=== PATIENT | female | born 1950 | race Caucasian/White ===

== ENCOUNTER 2020-01-14 08:45 | Outpatient (CLI) | payer MEDICARE, SELFPAY ==
[2020-01-14 09:46] LABS: Hematocrit 42.6 % (37.0-47.0); Hemoglobin 13.5 g/dL (12.0-15.0); Mean Corpuscular HGB Conc 31.7 g/dl (32-36); Mean Corpuscular Hemoglobin 25.6 pg (26-34); Mean Corpuscular Volume 80.8 fl (80-100); Platelet Count Result 302 k/mm3 (150-375); Red Blood Count 5.27 M/mm3 (4.2-5.4); Red Cell Distribution Width 19.2 % (11.5-14.5); White Blood Count 11.2 K/mm3 (4.5-10.0)
[2020-01-14 10:11] LABS: LDL Cholesterol Direct 120 mg/dL
[2020-01-14 10:15] LABS: Alanine Aminotransferase 27 U/L (4-35); Albumin Level 4.2 g/dL (3.5-5.1); Alkaline Phosphatase 78 U/L (38-126); Aspartate Amino Transferase 28 U/L (14-36); Bilirubin,Total 0.4 mg/dL (0.2-1.3); Blood Urea Nitrogen 11 mg/dL (7-17); Calcium 9.2 mg/dL (8.4-10.2); Carbon Dioxide 26 mmol/L (22-30); Chloride 103 mmol/L (98-107); Cholesterol 204 mg/dL (0-200); Estimated Glomerular Filt Rate > 60; Glucose 132 mg/dL (65-105); HDL Direct 52 mg/dL; Potassium 4.2 mmol/L (3.4-5.0); Sodium 141 mmol/L (137-145); Triglycerides 149 mg/dL (<150)
== END 2020-01-14 08:46 | disposition home or self-care (01) ==
PROVIDERS: PCP Internal Medicine; Visit Provider Internal Medicine
DX: E11.9 Type 2 diabetes mellitus without complications (principal); I10 Essential (primary) hypertension; K75.81 Nonalcoholic steatohepatitis (NASH); E78.5 Hyperlipidemia, unspecified; D50.8 Other iron deficiency anemias
CPT/HCPCS: 36415; 80053; 80061; 83036; 85027

== ENCOUNTER 2020-02-14 08:26 | Outpatient (CLI) | payer MEDICARE, SELFPAY ==
[2020-02-14 08:37] LABS: Basophils Absolute Auto 0.1 K/mm3 (0.0-0.1); Basophils Percent Auto 0.6 % (0.2-1.2); Eosinophils Absolute Auto 0.4 K/mm3 (0-0.3); Eosinophils Percent Auto 4.4 % (0-4.4); Hematocrit 43.6 % (37.0-47.0); Hemoglobin 13.9 g/dL (12.0-15.0); Immature Granulocyte Absolute 0.04 K/mm3 (0.00-0.031); Immature Granulocyte Percent A 0.4 % (0-0.5); Lymphocytes Absolute Auto 2.26 K/mm3 (0.9-3.2); Lymphocytes Percent Auto 22.5 % (18.3-44.2); Mean Corpuscular HGB Conc 31.9 g/dl (32-36); Mean Corpuscular Hemoglobin 27.1 pg (26-34); Mean Corpuscular Volume 85.2 fl (80-100); Mean Platelet Volume 10.3 fl (7.4-10.4); Monocytes Absolute Auto 0.6 K/mm3 (0.1-0.6); Monocytes Percent Auto 6.3 % (2.6-8.5); Neutrophils Absolute Auto 6.6 K/mm3 (1.3-6.7); Neutrophils Percent Auto 65.8 % (45.5-73.1); Platelet Count Result 308 k/mm3 (150-375); Red Blood Count 5.12 M/mm3 (4.2-5.4); Red Cell Distribution Width 18.5 % (11.5-14.5); White Blood Count 10.1 K/mm3 (4.5-10.0)
[2020-02-14 12:25] LABS: Alanine Aminotransferase 20 U/L (4-35); Albumin Level 4.1 g/dL (3.5-5.1); Alkaline Phosphatase 84 U/L (38-126); Aspartate Amino Transferase 21 U/L (14-36); Bilirubin,Total 0.3 mg/dL (0.2-1.3); Blood Urea Nitrogen 12 mg/dL (7-17); Calcium 9.4 mg/dL (8.4-10.2); Carbon Dioxide 23 mmol/L (22-30); Chloride 104 mmol/L (98-107); Estimated Glomerular Filt Rate > 60; Glucose 135 mg/dL (65-105); Potassium 4.4 mmol/L (3.4-5.0); Sodium 138 mmol/L (137-145)
[2020-02-14 12:48] LABS: Carcinoembryonic Antigen 0.7 ng/mL (0.0-3.0)
== END 2020-02-14 08:27 | disposition home or self-care (01) ==
LOC: ANHLAB 08:28
PROVIDERS: PCP Internal Medicine; Visit Provider Internal Medicine Hematology & Oncology
DX: C18.2 Malignant neoplasm of ascending colon (principal)
CPT/HCPCS: 36415; 80053; 82378; 85025

== ENCOUNTER 2020-03-13 09:04 | Outpatient (CLI) | payer MEDICARE, SELFPAY ==
--- NOTE | ~2020-03-13 | MM_ITS ---
EXAMINATION: MM screening elizabeth BI w mio HISTORY: Screening mammogram TECHNIQUE: Craniocaudal and mediolateral oblique 3-D tomosynthesis images were obtained and synthetic 2-D images were generated. CAD analysis was submitted and interpreted. COMPARISON: Comparison to multiple prior studies sequentially, with oldest reviewed study dated 03/2012. BREAST PARENCHYMAL COMPOSITION: There are scattered areas of fibroglandular density. FINDINGS: There is no evidence of suspicious mass, calcification, or architectural distortion to sugg est malignancy in either breast. There has been no suspicious interval change. IMPRESSION: 1. No mammographic evidence of malignancy. 2. Recommend routine screening mammography in one year. BI-RADS Category 1: Negative Reviewed, dictated and finalized at location A.
== END 2020-03-13 09:05 | disposition home or self-care (01) ==
PROVIDERS: PCP Internal Medicine; Visit Provider Nurse Practitioner
DX: Z12.31 Encounter for screening mammogram for malignant neoplasm of breast (principal)
CPT/HCPCS: 77063; 77067

== ENCOUNTER 2020-04-21 08:42 | Outpatient (CLI) | payer MEDICARE, SELFPAY ==
--- NOTE | ~2020-04-21 | CT_ITS ---
EXAMINATION: CT abdomen pelvis w con DATE: 04/21/2020 09:21 INDICATION: Malignant neoplasm of ascending colon. TECHNIQUE: Computed tomography (CT) of the abdomen and pelvis was performed with 100 mL Omnipaque 350 intravenous contrast. Automated exposure control and iterative reconstruction technique were employe d. The dose-length product was 557.21 mGy-cm. COMPARISON: PET/CT 10/04/2019, CT 09/20/2019 FINDINGS: The visualized portions of the lung bases demonstrates mild atelectasis. No pleural effusio n. The heart size is normal. No pericardial effusion. There is a small sliding hiatal hernia. The [place] er is normal. There are changes of cholecystectomy. The spleen, pancreas, adrenal glands, and kidneys are normal. There are changes of right hemicolectomy. There are areas of fat necrosis in the surgica l bed. There is diverticulosis of the colon without evidence of diverticulitis. There are no patholog ically enlarged lymph nodes. There is no free intraperitoneal fluid. There is severe lower lumbar spo ndylosis. IMPRESSION: 1. No evidence of metastatic disease. Reviewed, dictated and finalized at location A.
[2020-04-21 09:12] LABS: Estimated Glomerular Filt Rate > 60
== END 2020-04-21 08:43 | disposition home or self-care (01) ==
LOC: ANHIMG 08:45
PROVIDERS: PCP Internal Medicine; Visit Provider Internal Medicine Hematology & Oncology
DX: C18.2 Malignant neoplasm of ascending colon (principal)
CPT/HCPCS: 36415; 74177; Q9967

== ENCOUNTER 2020-07-18 08:32 | Outpatient (CLI) | payer MEDICARE, SELFPAY ==
[2020-07-18 08:54] LABS: Basophils Absolute Auto 0.1 K/mm3 (0.0-0.1); Basophils Percent Auto 0.9 % (0.2-1.2); Eosinophils Absolute Auto 0.6 K/mm3 (0-0.3); Eosinophils Percent Auto 5.1 % (0-4.4); Hematocrit 41.2 % (37.0-47.0); Immature Granulocyte Absolute 0.08 K/mm3 (0.00-0.031); Immature Granulocyte Percent A 0.7 % (0-0.5); Lymphocytes Absolute Auto 2.71 K/mm3 (0.9-3.2); Lymphocytes Percent Auto 23.6 % (18.3-44.2); Mean Corpuscular Hemoglobin 30.1 pg (26-34); Mean Corpuscular Volume 88.6 fl (80-100); Mean Platelet Volume 10.3 fl (7.4-10.4); Monocytes Absolute Auto 0.7 K/mm3 (0.1-0.6); Monocytes Percent Auto 5.8 % (2.6-8.5); Neutrophils Absolute Auto 7.3 K/mm3 (1.3-6.7); Neutrophils Percent Auto 63.9 % (45.5-73.1); Platelet Count Result 304 k/mm3 (150-375); Red Blood Count 4.65 M/mm3 (4.2-5.4); White Blood Count 11.5 K/mm3 (4.5-10.0)
[2020-07-18 09:04] LABS: Hemoglobin A1C 7.2 % (<5.7)
[2020-07-18 09:08] LABS: Alanine Aminotransferase 96 U/L (4-35); Albumin Level 4.2 g/dL (3.5-5.1); Alkaline Phosphatase 76 U/L (38-126); Anion Gap 10 mmol/L (8-16); Aspartate Amino Transferase 103 U/L (14-36); Bilirubin,Total 0.5 mg/dL (0.2-1.3); Blood Urea Nitrogen 10 mg/dL (7-17); Calcium 9.1 mg/dL (8.4-10.2); Carbon Dioxide 25 mmol/L (22-30); Chloride 103 mmol/L (98-107); Estimated Glomerular Filt Rate > 60; Glucose 177 mg/dL (65-105); Potassium 4.2 mmol/L (3.4-5.0); Sodium 138 mmol/L (137-145)
[2020-07-18 09:18] LABS: Iron 86 ug/dL (37-170)
[2020-07-18 09:31] LABS: Percent Iron Saturation 21 % (20-50)
[2020-07-18 11:50] LABS: Vitamin D 25 Hydroxy 32.7 ng/mL
== END 2020-07-18 08:33 | disposition home or self-care (01) ==
PROVIDERS: PCP Internal Medicine; Visit Provider Nurse Practitioner
DX: E55.9 Vitamin D deficiency, unspecified (principal); E11.9 Type 2 diabetes mellitus without complications; D50.0 Iron deficiency anemia secondary to blood loss (chronic)
CPT/HCPCS: 36415; 80053; 82306; 83036; 83540; 83550; 85025

== ENCOUNTER 2020-08-17 11:28 | Outpatient (CLI) | payer MEDICARE, SELFPAY ==
[2020-08-17 11:45] LABS: Basophils Absolute Auto 0.1 K/mm3 (0.0-0.1); Basophils Percent Auto 0.7 % (0.2-1.2); Eosinophils Absolute Auto 0.3 K/mm3 (0-0.3); Eosinophils Percent Auto 2.2 % (0-4.4); Hemoglobin 14.8 g/dL (12.0-15.0); Immature Granulocyte Absolute 0.07 K/mm3 (0.00-0.031); Immature Granulocyte Percent A 0.5 % (0-0.5); Lymphocytes Absolute Auto 3.16 K/mm3 (0.9-3.2); Lymphocytes Percent Auto 22.9 % (18.3-44.2); Mean Corpuscular HGB Conc 33.6 g/dl (32-36); Mean Corpuscular Hemoglobin 29.5 pg (26-34); Mean Corpuscular Volume 87.6 fl (80-100); Mean Platelet Volume 10.3 fl (7.4-10.4); Monocytes Absolute Auto 0.9 K/mm3 (0.1-0.6); Monocytes Percent Auto 6.4 % (2.6-8.5); Neutrophils Absolute Auto 9.3 K/mm3 (1.3-6.7); Neutrophils Percent Auto 67.3 % (45.5-73.1); Platelet Count Result 344 k/mm3 (150-375); Red Blood Count 5.02 M/mm3 (4.2-5.4); White Blood Count 13.8 K/mm3 (4.5-10.0)
[2020-08-17 13:42] LABS: Iron 70 ug/dL (37-170)
[2020-08-17 13:52] LABS: Percent Iron Saturation 16 % (20-50)
[2020-08-17 14:10] LABS: Alanine Aminotransferase 87 U/L (4-35); Albumin Level 4.6 g/dL (3.5-5.1); Alkaline Phosphatase 82 U/L (38-126); Anion Gap 15 mmol/L (8-16); Aspartate Amino Transferase 80 U/L (14-36); Bilirubin,Total 0.4 mg/dL (0.2-1.3); Blood Urea Nitrogen 14 mg/dL (7-17); Calcium 9.8 mg/dL (8.4-10.2); Carbon Dioxide 23 mmol/L (22-30); Chloride 101 mmol/L (98-107); Estimated Glomerular Filt Rate > 60; Glucose 177 mg/dL (65-105); Sodium 139 mmol/L (137-145)
== END 2020-08-17 11:29 | disposition home or self-care (01) ==
LOC: ANHLAB 11:31
PROVIDERS: PCP Internal Medicine; Visit Provider Internal Medicine Hematology & Oncology
DX: R79.89 Other specified abnormal findings of blood chemistry (principal); C18.2 Malignant neoplasm of ascending colon
CPT/HCPCS: 36415; 80053; 82378; 82728; 83540; 83550; 85025; 86038

== ENCOUNTER 2021-01-23 07:07 | Outpatient (CLI) | payer MEDICARE, SELFPAY ==
[2021-01-23 07:53] LABS: Alanine Aminotransferase 72 U/L (4-35); Albumin Level 3.9 g/dL (3.5-5.1); Alkaline Phosphatase 70 U/L (38-126); Anion Gap 10 mmol/L (8-16); Aspartate Amino Transferase 61 U/L (14-36); Bilirubin,Total 0.3 mg/dL (0.2-1.3); Blood Urea Nitrogen 12 mg/dL (7-17); Calcium 8.6 mg/dL (8.4-10.2); Carbon Dioxide 23 mmol/L (22-30); Chloride 106 mmol/L (98-107); Cholesterol 193 mg/dL (0-200); Estimated Glomerular Filt Rate > 60; Glucose 186 mg/dL (65-105); HDL Direct 47 mg/dL; Sodium 139 mmol/L (137-145); Triglycerides 175 mg/dL (<150)
[2021-01-23 08:04] LABS: LDL Cholesterol Direct 117 mg/dL
[2021-01-23 08:36] LABS: Vitamin D 25 Hydroxy 33.8 ng/mL
[2021-01-23 09:50] LABS: Hemoglobin A1C 6.9 % (<5.7)
== END 2021-01-23 07:08 | disposition home or self-care (01) ==
PROVIDERS: PCP Internal Medicine; Visit Provider Internal Medicine
DX: E78.5 Hyperlipidemia, unspecified (principal); I10 Essential (primary) hypertension; E11.9 Type 2 diabetes mellitus without complications; E55.9 Vitamin D deficiency, unspecified
CPT/HCPCS: 36415; 80053; 80061; 82306; 83036

== ENCOUNTER → 2021-02-03 02:13 | Outpatient (CLI) | payer MEDICARE, SELFPAY ==
[2021-02-03 20:22] LABS: SARS-CoV-2 RNA PCR Negative
== END ==
PROVIDERS: PCP Internal Medicine; Visit Provider Internal Medicine Gastroenterology
DX: Z01.812 Encounter for preprocedural laboratory examination (principal); Z20.822 Contact with and (suspected) exposure to COVID-19
CPT/HCPCS: C9803; U0003; U0005

== ENCOUNTER 2021-02-06 01:38 | Day surgery (SDC) | payer MEDICARE, SELFPAY ==
[2021-01-23 13:46] VITALS: BMI 31.1
[2021-02-06 10:57] VITALS: BP 161/86; PULSE 92; RESP 16; TEMP 36.3; O2SAT 98; BMI 31.1
[2021-02-06 11:01] LABS: Glucose Point of Care 166 (65-105)
[2021-02-06] MEDS: LACTATED RINGERS 1,000 ML 150 ML IV CONT (11:17)
--- NOTE | 2021-02-06 11:34 | WPDANESEPPF ---
Anes - Initial Pre Proc Eval Procedure: Operation Date: 02/06/21 12:00 Proposed Procedures p Colonoscopy - Rios Nolan MD Date/Time: 02/06/21 11:34 Surgeon: Rios Nolan MD Pre Op Diagnosis: DK, Hx of Colon CA Patient Data Age: 71 Gender: F Height: 5 ft 2 in Weight: 77.3 kg Last Vital Signs Temp 36.3 C L 02/06/21 10:57 Pulse 92 02/06/21 10:57 Resp 16 02/06/21 10:57 BP 161/86 H 02/06/21 10:57 Pulse Ox 98 02/06/21 10:57 Allergies Allergy/AdvReac Type Severity Reaction Status Date / Time No Known Allergies Allergy Verified 02/06/21 10:55 Home Medications Medication Instructions Recorded Confirmed Type [id number] 1 cap PO DAILY 10/05/19 01/30/21 History aspirin [Aspir-81] 81 mg PO DAILY 10/05/19 01/30/21 History omega 3-jlw-hrr-fish oil [Fish Oil] 1 cap PO TID 10/05/19 01/30/21 History vitamin B complex-folic acid [B 1 tablet PO BID 10/05/19 01/30/21 History Complex 1 (with folic acid)] glipizide 5 mg tablet See Rx Instructions .ROUTE 10/24/20 01/30/21 Rx .COMPLEX #180 tablet sitagliptin 50 mg-metformin 500 mg 1 tablet PO BID #180 tablet 10/24/20 01/30/21 Rx tablet magnesium oxide 400 mg (241.3 mg See Rx Instructions .ROUTE 12/07/20 01/30/21 Rx magnesium) tablet .COMPLEX #180 tablet losartan 100 See Rx Instructions .ROUTE 12/18/20 01/30/21 Rx mg-hydrochlorothiazide 25 mg tablet .COMPLEX #90 tablet sodium,potassium,mag sulfates 17.5 See Rx Instructions PO .COMPLEX 01/10/21 01/30/21 Rx gram-3.13 gram-1.6 gram oral soln #354 ml Laboratory Tests 02/06/21 10:58 POC Capillary Glucose 166 mg/dl H mg/dl (65-105) Patient hx anesthesia problems: none Family hx anesthesia problems: none PMFSH Past Medical History Medical History Chronic anemia Diabetes Hiatal hernia identified by CT, small sliding distal esophageal High cholesterol History of blood transfusion Hypertension Malignant neoplasm of ascending colon Multiple renal calculi history of passing without surgical intervention Obesity (BMI 30-39.9) Postmenopausal Screening for breast cancer RELL (stress urinary incontinence, female) Vitamin D deficiency, unspecified Surgical History Surgical History History of cholecystectomy 2011 History of hysterectomy Status post right hemicolectomy Family History Family History Father Acute myocardial infarction, Onset Age: 63 Patient's father is Mother Family history of malignant neoplasm of breast in first degree relative, Onset Age: 63 Patient's mother is Sibling Family history of malignant neoplasm of breast in first degree relative Grandparent Diabetes mellitus Other Cerebrovascular accident Family history of cardiovascular disease Social History Social History Smoking status: Never smoker Alcohol intake: never Substance use type: does not use Gender identity (if verbalized by the patient): Female Spiritual care concerns: No Anes - Eval Final PreProcedure Day of Procedure 02/06/21 11:34 Patient weight: obese Heart: regular rate and rhythm Lungs: clear to auscultation Airway: Mallampati scale class II Neurological: alert and oriented Last oral intake: >/= 8 hours ASA classification: III Emergent: no Anesthetic plan: proceed Anesthesia type and monitoring: general GIVS and standard monitoring Informed Consent: The patient's anesthetic plan and its attendant risks and benefits were discussed with the patient/family/POA. Questions were solicited and answers provided to the satisfaction of the patient/family/POA.
--- NOTE | 2021-02-06 12:00 | PM.HPGS ---
History of Present Illness History of Present Illness Consent: Risks, benefits, and alternatives have been discussed and questions answered. Patient agrees to proceed with procedure. Chief complaint: DK, Hx of Colon CA Narrative: Diamond Hutchinson is a 71 year old female with colon cancer in ascending s/p rt hemicolectomy 2019 Review of Systems Constitutional: Constitutional: Denies headache(s) and Denies weakness Eyes: Eyes: Denies blurry vision ENT: Reports Normal hearing present, Denies headache(s) and Denies neck pain Cardiovascular: Cardiovascular: Denies chest pain and Denies dyspnea Respiratory: Respiratory: Denies dyspnea Gastrointestinal: Gastrointestinal: Reports no additional gastrointestinal complaints Genitourinary: Genitourinary: Denies dysuria Musculoskeletal: Musculoskeletal: Denies neck pain Integumentary/Breasts: Skin/Breast: Denies dry skin Neurologic: Reports Normal hearing present, Denies headache(s) and Denies weakness Psychiatric: Psychiatric: Denies anxiety Endocrine: Endocrine: Denies change in body appearance Hematologic/Lymphatic: Hematologic/Lymphatic: Denies easy bleeding Allergic/Immunologic: Allergic/Immunologic: Denies urticaria PMFSH Past Medical History Medical History Chronic anemia Diabetes Hiatal hernia identified by CT, small sliding distal esophageal High cholesterol History of blood transfusion Hypertension Malignant neoplasm of ascending colon Multiple renal calculi history of passing without surgical intervention Obesity (BMI 30-39.9) Postmenopausal Screening for breast cancer RELL (stress urinary incontinence, female) Vitamin D deficiency, unspecified Surgical History Surgical History History of cholecystectomy 2010 History of hysterectomy Status post right hemicolectomy Family History Family History Father Acute myocardial infarction, Onset Age: 63 Patient's father is Mother Family history of malignant neoplasm of breast in first degree relative, Onset Age: 63 Patient's mother is Sibling Family history of malignant neoplasm of breast in first degree relative Grandparent Diabetes mellitus Other Cerebrovascular accident Family history of cardiovascular disease Social History Social History Smoking status: Never smoker Alcohol intake: never Substance use type: does not use Gender identity (if verbalized by the patient): Female Spiritual care concerns: No Meds Home Medications and Allergies Home Medications Medication Instructions Recorded Confirmed Type [id number] 1 cap PO DAILY 10/05/19 01/30/21 History aspirin [Aspir-81] 81 mg PO DAILY 10/05/19 01/30/21 History omega 8-vsl-vqd-fish oil [Fish Oil] 1 cap PO TID 10/05/19 01/30/21 History vitamin B complex-folic acid [B 1 tablet PO BID 10/05/19 01/30/21 History Complex 1 (with folic acid)] glipizide 5 mg tablet See Rx Instructions .ROUTE 10/24/20 01/30/21 Rx .COMPLEX #180 tablet sitagliptin 50 mg-metformin 500 mg 1 tablet PO BID #180 tablet 10/24/20 01/30/21 Rx tablet magnesium oxide 400 mg (241.3 mg See Rx Instructions .ROUTE 12/07/20 01/30/21 Rx magnesium) tablet .COMPLEX #180 tablet losartan 100 See Rx Instructions .ROUTE 12/18/20 01/30/21 Rx mg-hydrochlorothiazide 25 mg tablet .COMPLEX #90 tablet sodium,potassium,mag sulfates 17.5 See Rx Instructions PO .COMPLEX 01/10/21 01/30/21 Rx gram-3.13 gram-1.6 gram oral soln #354 ml Allergies Allergy/AdvReac Type Severity Reaction Status Date / Time No Known Allergies Allergy Verified 02/06/21 10:55 Vital Signs Vital Signs - 24 hr 02/06/21 10:57 Temperature 97.4 F L Pulse Rate 92 Respiratory Rate 16 Blood Pressur
[2021-02-06 12:18] VITALS: BP 114/63; PULSE 83; RESP 17; O2SAT 96
[2021-02-06 12:28] VITALS: BP 115/73; PULSE 77; RESP 18; O2SAT 97
[2021-02-06 12:38] VITALS: BP 124/72; PULSE 67; RESP 23; O2SAT 97
== END 2021-02-06 12:46 | disposition home or self-care (01) ==
PROVIDERS: PCP Internal Medicine; Visit Provider Internal Medicine Gastroenterology
PROC: 0DJD8ZZ Inspection of Lower Intestinal Tract, Via Natural or Artificial Opening Endoscopic (ICD-10-PCS; CPT 45378; principal; 2021-02-06 12:00)
DX: Z12.11 Encounter for screening for malignant neoplasm of colon (principal); K57.30 Diverticulosis of large intestine without perforation or abscess without bleeding; Z85.038 Personal history of other malignant neoplasm of large intestine; Z79.82 Long term (current) use of aspirin; K44.9 Diaphragmatic hernia without obstruction or gangrene; E78.00 Pure hypercholesterolemia, unspecified; I10 Essential (primary) hypertension; E55.9 Vitamin D deficiency, unspecified; Z90.49 Acquired absence of other specified parts of digestive tract; Z98.0 Intestinal bypass and anastomosis status; K64.8 Other hemorrhoids; D50.9 Iron deficiency anemia, unspecified; E66.9 Obesity, unspecified; Z68.31 Body mass index [BMI] 31.0-31.9, adult
CPT/HCPCS: G0105; 82948; J2704; J7120

== ENCOUNTER 2021-02-21 17:20 | Outpatient (CLI) | payer MEDICARE, SELFPAY | END 2021-02-21 17:21 | disposition home or self-care (01) | LOC: ANHCOVIDVC 17:20 | PROVIDERS: PCP Internal Medicine | DX: Z23 Encounter for immunization (principal) | CPT/HCPCS: 0001A; 91300 ==

== ENCOUNTER 2021-03-14 17:13 | Outpatient (CLI) | payer MEDICARE, SELFPAY | END 2021-03-14 17:14 | disposition home or self-care (01) | LOC: ANHCOVIDVC 17:13 | PROVIDERS: PCP Internal Medicine | DX: Z23 Encounter for immunization (principal) | CPT/HCPCS: 0002A; 91300 ==

== ENCOUNTER 2021-04-25 08:11 | Outpatient (CLI) | payer MEDICARE, SELFPAY ==
--- NOTE | ~2021-04-25 | MM_ITS ---
EXAMINATION: MM screening elizabeth BI w mio HISTORY: Screening mammogram, family history of breast cancer in her sister. TECHNIQUE: Craniocaudal and mediolateral oblique 3-D tomosynthesis images were obtained and synthetic 2-D images were generated. CAD analysis was submitted and interpreted. COMPARISON: 03/13/2020, 03/12/2019, 01/27/2019 BREAST PARENCHYMAL COMPOSITION: There are scattered areas of fibroglandular density. FINDINGS: Scattered benign-appearing calcifications are present. There is no evidence of suspicious m ass, calcification, or architectural distortion to suggest malignancy in either breast. There has bee n no suspicious interval change. IMPRESSION: 1. No mammographic evidence of malignancy. 2. Recommend routine screening mammography in one year. BI-RADS Category 2: Benign finding(s). Reviewed, dictated and finalized at location A.
== END 2021-04-25 08:12 | disposition home or self-care (01) ==
LOC: ANHIMG 08:15
PROVIDERS: PCP Internal Medicine; Visit Provider Internal Medicine
DX: Z12.31 Encounter for screening mammogram for malignant neoplasm of breast (principal)
CPT/HCPCS: 77063; 77067

== ENCOUNTER 2021-08-02 06:58 | Outpatient (CLI) | payer MEDICARE, SELFPAY ==
[2021-08-02 08:43] LABS: Hemoglobin A1C 7.5 % (<5.7)
== END 2021-08-02 06:59 | disposition home or self-care (01) ==
LOC: ANHLAB 07:02
PROVIDERS: PCP Internal Medicine; Visit Provider Nurse Practitioner
DX: E11.9 Type 2 diabetes mellitus without complications (principal); E78.5 Hyperlipidemia, unspecified
CPT/HCPCS: 36415; 80053; 80061; 83036

== ENCOUNTER 2022-02-08 07:43 | Outpatient (CLI) | payer MEDICARE, SELFPAY ==
[2022-02-08 08:20] LABS: Alanine Aminotransferase 68 U/L (4-35); Albumin Level 4.4 g/dL (3.5-5.1); Alkaline Phosphatase 75 U/L (38-126); Anion Gap 11 mmol/L (8-16); Aspartate Amino Transferase 74 U/L (14-36); Bilirubin,Total 0.6 mg/dL (0.2-1.3); Blood Urea Nitrogen 10 mg/dL (7-17); Calcium 9.2 mg/dL (8.4-10.2); Carbon Dioxide 25 mmol/L (22-30); Chloride 99 mmol/L (98-107); Cholesterol 226 mg/dL (0-200); Estimated Glomerular Filt Rate > 60; Glucose 181 mg/dL (65-110); HDL Direct 46 mg/dL; Potassium 4.2 mmol/L (3.4-5.0); Sodium 135 mmol/L (137-145); Triglycerides 192 mg/dL (<150)
[2022-02-08 08:31] LABS: LDL Cholesterol Direct 128 mg/dL
[2022-02-08 08:44] LABS: Hemoglobin A1C 6.9 % (<5.7)
[2022-02-08 09:17] LABS: Creatinine Urine 146.3 mg/dL
[2022-02-08 09:21] LABS: MALB Creatinine Ratio 52.6 mg/g (0-30); Microalbumin Urine Random 76.9 mg/L (0-16.7)
[2022-02-08 09:29] LABS: Vitamin D 25 Hydroxy 43.5 ng/mL
== END 2022-02-08 07:44 | disposition home or self-care (01) ==
LOC: ANHLAB 07:45
PROVIDERS: PCP Internal Medicine; Visit Provider Internal Medicine
DX: E78.5 Hyperlipidemia, unspecified (principal); E11.9 Type 2 diabetes mellitus without complications; I10 Essential (primary) hypertension; E55.9 Vitamin D deficiency, unspecified
CPT/HCPCS: 36415; 80053; 80061; 82043; 82306; 83036

== ENCOUNTER 2022-06-13 07:20 | Outpatient (CLI) | payer MEDICARE, SELFPAY ==
--- NOTE | ~2022-06-13 | MM_ITS ---
EXAMINATION: MM screening elizabeth BI w mio HISTORY: Screening TECHNIQUE: Craniocaudal and mediolateral oblique 3-D tomosynthesis images were obtained and synthetic 2-D images were generated. CAD analysis was submitted and interpreted. COMPARISON: Comparison to multiple prior studies sequentially, with oldest reviewed study dated 09/11. BREAST PARENCHYMAL COMPOSITION: There are scattered areas of fibroglandular density. FINDINGS: There are developing asymmetries in the upper central aspect of both breasts. There are no suspicious calcifications or architectural distortion. IMPRESSION: 1. Developing bilateral breast asymmetries. 2. Additional mammographic views and possible breast ultrasound are recommended. BI-RADS Category 0: Incomplete: Needs additional imaging evaluation. Reviewed, dictated and finalized at location A. IMPRESSION: 1. Developing bilateral breast asymmetries. 2. Additional mammographic views and possible breast ultrasound are recommended . BI-RADS Category 0: Incomplete: Needs additional imaging evaluation.
== END 2022-06-13 07:21 | disposition home or self-care (01) ==
PROVIDERS: PCP Internal Medicine; Visit Provider Internal Medicine
DX: Z12.31 Encounter for screening mammogram for malignant neoplasm of breast (principal); R92.8 Other abnormal and inconclusive findings on diagnostic imaging of breast
CPT/HCPCS: 77063; 77067

== ENCOUNTER 2022-07-03 11:24 | Outpatient (CLI) | payer MEDICARE, SELFPAY ==
--- NOTE | ~2022-07-03 | MMUS_ITS ---
EXAMINATION: MM diagnostic elizabeth BI w mio, US breast BI complete HISTORY: Follow-up breast asymmetries TECHNIQUE: Additional 3-D tomosynthesis images of the breasts were performed and synthetic 2-D images were generated. CAD analysis was submitted and interpreted. High resolution bilateral complete breas t ultrasound was performed. COMPARISON: Comparison to multiple prior studies sequentially, with oldest reviewed study dated 01/30. BREAST PARENCHYMAL COMPOSITION: Breast composed of scattered areas of fibroglandular density FINDINGS: MAMMOGRAPHIC FINDINGS: Bilateral nodular asymmetries are less apparent with spot compression and mediolateral views, most li tony dense overlapping fibroglandular tissue. There are no suspicious calcifications or architectural distortion. ULTRASOUND: Complete bilateral US of all 4 quadrants of the breasts and retroareolar region was reviewed. Normal heterogeneous echotexture without focal solid or cystic mass. IMPRESSION: 1. No evidence for malignancy in either breast. 2. Routine yearly screening mammogram and regular clinical breast examination are recommended. BI-RADS Category 1: Negative Reviewed, dictated and finalized at location A. IMPRESSION: 1. No evidence for malignancy in either breast. 2. Routine yearly screening mammogram and regular clinical breast examination a re recommended. BI-RADS Category 1: Negative
== END 2022-07-03 11:25 | disposition home or self-care (01) ==
PROVIDERS: PCP Internal Medicine; Visit Provider Internal Medicine
DX: R92.8 Other abnormal and inconclusive findings on diagnostic imaging of breast (principal)
CPT/HCPCS: 76641; 77062; 77066; G0279

== ENCOUNTER 2022-09-17 06:35 | Outpatient (CLI) | payer MEDICARE, SELFPAY ==
[2022-09-17 07:24] LABS: Alanine Aminotransferase 83 U/L (6-35); Albumin Level 4.3 g/dL (3.5-5.1); Alkaline Phosphatase 75 U/L (38-126); Anion Gap 16 mmol/L (8-16); Aspartate Amino Transferase 76 U/L (14-36); Bilirubin,Total 0.5 mg/dL (0.2-1.3); Blood Urea Nitrogen 14 mg/dL (7-17); Carbon Dioxide 25 mmol/L (22-30); Chloride 99 mmol/L (98-107); Cholesterol 219 mg/dL (0-200); Estimated Glomerular Filt Rate > 60; Glucose 222 mg/dL (65-110); HDL Direct 36 mg/dL; Potassium 3.8 mmol/L (3.4-5.0); Sodium 140 mmol/L (137-145); Triglycerides 225 mg/dL (<150)
[2022-09-17 07:25] LABS: Hemoglobin A1C 9.6 % (<5.7)
[2022-09-17 07:34] LABS: LDL Cholesterol Direct 129 mg/dL
[2022-09-17 08:06] LABS: Vitamin D 25 Hydroxy 37.6 ng/mL
== END 2022-09-17 06:36 | disposition home or self-care (01) ==
LOC: ANHLAB 06:37
PROVIDERS: PCP Internal Medicine; Visit Provider Nurse Practitioner
DX: E55.9 Vitamin D deficiency, unspecified (principal); E11.9 Type 2 diabetes mellitus without complications; E78.5 Hyperlipidemia, unspecified
CPT/HCPCS: 36415; 80053; 80061; 82306; 83036

== ENCOUNTER 2023-03-27 08:23 | Outpatient (CLI) | payer MEDICARE, SELFPAY ==
[2023-03-27 09:12] LABS: Hemoglobin A1C 7.9 % (<5.7)
[2023-03-27 09:13] LABS: Alanine Aminotransferase 74 U/L (6-35); Albumin Level 4.4 g/dL (3.5-5.1); Alkaline Phosphatase 68 U/L (38-126); Anion Gap 9 mmol/L (8-16); Aspartate Amino Transferase 81 U/L (14-36); Bilirubin,Total 0.7 mg/dL (0.2-1.3); Blood Urea Nitrogen 11 mg/dL (7-17); Calcium 9.3 mg/dL (8.4-10.2); Carbon Dioxide 25 mmol/L (22-30); Chloride 103 mmol/L (98-107); Cholesterol 213 mg/dL (0-200); Estimated Glomerular Filt Rate > 60; Glucose 182 mg/dL (65-110); HDL Direct 46 mg/dL; Sodium 137 mmol/L (137-145); Triglycerides 230 mg/dL (<150)
[2023-03-27 09:23] LABS: LDL Cholesterol Direct 139 mg/dL
[2023-03-27 09:53] LABS: Creatinine Urine 114.1 mg/dL
[2023-03-27 09:55] LABS: Microalbumin Urine Random 69.6 mg/L (0-16.7)
[2023-03-27 10:01] LABS: Vitamin D 25 Hydroxy 37.3 ng/mL
== END 2023-03-27 08:24 | disposition home or self-care (01) ==
PROVIDERS: Internal Medicine; PCP Family Medicine; Visit Provider Family Medicine
DX: K75.81 Nonalcoholic steatohepatitis (NASH) (principal); E78.5 Hyperlipidemia, unspecified; E11.9 Type 2 diabetes mellitus without complications; I10 Essential (primary) hypertension; E55.9 Vitamin D deficiency, unspecified
CPT/HCPCS: 36415; 80053; 80061; 82043; 82306; 83036

== ENCOUNTER 2023-07-30 08:21 | Outpatient (CLI) | payer MEDICARE, SELFPAY ==
--- NOTE | ~2023-07-30 | MM_ITS ---
EXAMINATION: MM screening elizabeth BI w mio HISTORY: Screening TECHNIQUE: Craniocaudal and mediolateral oblique 3-D tomosynthesis images were obtained and synthetic 2-D images were generated. CAD analysis was submitted and interpreted. COMPARISON: Comparison to multiple prior studies sequentially, with oldest reviewed study dated 01/2019. BREAST PARENCHYMAL COMPOSITION: There are scattered areas of fibroglandular density. FINDINGS: The left breast is stable without evidence for malignancy. There is a developing cluster of indeterminate calcifications in the lower outer quadrant of the right breast, middle third. There ar e developing scattered asymmetries of the right breast. IMPRESSION: 1. Developing scattered asymmetries and clustered indeterminate calcifications of the right breast. 2. Additional mammographic views and possible breast ultrasound are recommended. BI-RADS Category 0: Incomplete: Needs additional imaging evaluation. Reviewed, dictated and finalized at location A. IMPRESSION: 1. Developing scattered asymmetries and clustered indeterminate calcifications of the right breast. 2. Additional mammographic views and possible breast ultrasound are recommended . BI-RADS Category 0: Incomplete: Needs additional imaging evaluation.
== END 2023-07-30 08:22 | disposition home or self-care (01) ==
LOC: ANHIMG 08:23
PROVIDERS: PCP Family Medicine; Visit Provider Family Medicine
DX: Z12.31 Encounter for screening mammogram for malignant neoplasm of breast (principal); R92.8 Other abnormal and inconclusive findings on diagnostic imaging of breast
CPT/HCPCS: 77063; 77067

== ENCOUNTER 2023-08-25 11:34 | Outpatient (CLI) | payer MEDICARE, SELFPAY ==
--- NOTE | ~2023-08-25 | MMUS_ITS ---
EXAMINATION: MM diagnostic elizabeth RT w mio, US breast RT complete HISTORY: Follow-up right breast asymmetries and calcifications TECHNIQUE: Additional 3-D tomosynthesis images of the right breast were performed and synthetic 2-D i mages were generated. CAD analysis was submitted and interpreted. High resolution complete right [address]urelia st ultrasound was performed. COMPARISON: Comparison to multiple prior studies sequentially, with oldest reviewed study dated 01/2019. BREAST PARENCHYMAL COMPOSITION: Breast composed of scattered areas of fibroglandular density FINDINGS: MAMMOGRAPHIC FINDINGS: Right breast asymmetries are less dense with spot compression and mediolateral views. No discrete mas s. There is a cluster of developing indeterminate calcifications in the lower outer quadrant of the r ight breast posteriorly. ULTRASOUND: Complete US of all 4 quadrants of the right breast and retroareolar region was reviewed. Normal heter ogeneous echotexture without focal solid or cystic mass. IMPRESSION: 1. Developing cluster of indeterminate right breast calcifications, lower outer quadrant posteriorly. 2. Stereotactic right breast biopsy recommended. BI-RADS category 4, suspicious findings. Reviewed, dictated and finalized at location A. IMPRESSION: 1. Developing cluster of indeterminate right breast calcifications, lower outer quadrant posteriorly. 2. Stereotactic right breast biopsy recommended. BI-RADS category 4, suspicious findings.
== END 2023-08-25 11:35 | disposition home or self-care (01) ==
LOC: ANHIMG 11:34
PROVIDERS: PCP Family Medicine; Visit Provider Family Medicine
DX: N64.89 Other specified disorders of breast (principal); R92.8 Other abnormal and inconclusive findings on diagnostic imaging of breast
CPT/HCPCS: 76641; 77061; 77065; G0279

== ENCOUNTER 2023-09-04 13:05 | Outpatient (CLI) | payer MEDICARE, SELFPAY ==
--- NOTE | ~2023-09-04 | MM_ITS ---
EXAMINATION: MM stereotactic bx RT, MM post biopsy diagnostic RT, MM stereotactic specimen RT, Specim en Radiograph, Tissue Marker Clip Placement, Unilateral Mammogram DATE: 09/04/2023 14:39 (accession [id number]), 09/04/2023 14:40 (accession [id number]), 09/04 14:39 (accession [id number]) INDICATION: Abnormal 08/25/2023 mammogram: Cluster of indeterminate right breast microcalcifications, lower outer quadrant posteriorly. TECHNIQUE AND FINDINGS: The risks and potential benefits of the procedure were discussed with the patient and written informe d consent was obtained. Timeout procedure was performed. The patient was placed in the prone position on the dedicated stereotactic table with the right breast in lateral medial compression, and the are a of interest was localized and targeted utilizing digital imaging with stereotaxis. After sterile preparation of the skin, 1% lidocaine was utilized for local anesthesia at the skin pun cture site and 1% lidocaine with epinephrine was utilized for deeper local anesthesia/is about the bi opsy site. A 9G [place] vacuum assisted biopsy needle was advanced to the level of the calcification o f interest from a lateral approach utilizing stereotactic guidance and a total of 12 tissue core biop sies were obtained. A specimen radiograph demonstrates that numerous calcifications of interest are included within the t issue cores. A tissue marker clip was then placed at the biopsy site. A digital mammographic exposu re confirmed the successful deployment of the biopsy marker. The needle was removed and hemostasis w as achieved. A sterile bandage was applied. The patient tolerated the procedure well and there is n o evidence of significant immediate complication. The patient was given verbal as well as written po stprocedural instructions prior to discharge from the department. Tissue cores were submitted to [facility] for histologic analysis. A 2-view right unilateral digital mammogram was obtained post procedure, demonstrating the tissue mar ker clip approximately 8.5 mm medial, 3 mm anterior and 7 mm inferior to some residual microcalcifica tions of interest.. The majority of the microcalcifications were successfully removed. IMPRESSION: Successful stereotactic biopsy of posterior lower central right breast microcalcifications followed by tissue marker clip placement. Please refer to pathology report for histologic analysis. Reviewed, dictated and finalized at Location A. Reviewed, dictated and finalized at location A. IMPRESSION: Successful stereotactic biopsy of posterior lower central right breast microca lcifications followed by tissue marker clip placement. Please refer to patholo gy report for histologic analysis. IMPRESSION: Successful stereotactic biopsy of posterior lower central right breast microca lcifications followed by tissue marker clip placement. Please refer to patholo gy report for histologic analysis.
== END 2023-09-04 13:06 | disposition home or self-care (01) ==
PROVIDERS: PCP Family Medicine; Visit Provider Family Medicine
DX: R92.1 Mammographic calcification found on diagnostic imaging of breast (principal); N64.89 Other specified disorders of breast
CPT/HCPCS: 19081; 77065; 88305; A4648

== ENCOUNTER 2023-09-17 08:23 | Outpatient (CLI) | payer MEDICARE, SELFPAY ==
[2023-09-17 10:04] LABS: Hemoglobin A1C 7.4 % (<5.7)
[2023-09-17 10:09] LABS: Alanine Aminotransferase 41 U/L (6-35); Albumin Level 4.4 g/dL (3.5-5.1); Alkaline Phosphatase 65 U/L (38-126); Anion Gap 12 mmol/L (8-16); Aspartate Amino Transferase 41 U/L (14-36); Bilirubin,Total 0.6 mg/dL (0.2-1.3); Blood Urea Nitrogen 14 mg/dL (7-17); Calcium 9.7 mg/dL (8.4-10.2); Carbon Dioxide 22 mmol/L (22-30); Chloride 104 mmol/L (98-107); Cholesterol 184 mg/dL (0-200); Estimated Glomerular Filt Rate > 60; Glucose 158 mg/dL (65-110); HDL Direct 44 mg/dL; Sodium 138 mmol/L (137-145); Triglycerides 193 mg/dL (<150)
[2023-09-17 10:20] LABS: LDL Cholesterol Direct 110 mg/dL
[2023-09-17 10:33] LABS: Vitamin D 25 Hydroxy 53.9 ng/mL
== END 2023-09-17 08:24 | disposition home or self-care (01) ==
PROVIDERS: PCP Family Medicine; Visit Provider Nurse Practitioner
DX: E78.5 Hyperlipidemia, unspecified (principal); E11.9 Type 2 diabetes mellitus without complications; E55.9 Vitamin D deficiency, unspecified
CPT/HCPCS: 36415; 80053; 80061; 82306; 83036

== ENCOUNTER 2024-03-24 08:23 | Outpatient (CLI) | payer MEDICARE, SELFPAY ==
[2024-03-24 09:17] LABS: Alanine Aminotransferase 26 U/L (6-35); Albumin Level 4.3 g/dL (3.5-5.1); Alkaline Phosphatase 65 U/L (38-126); Anion Gap 8 mmol/L (4-12); Aspartate Amino Transferase 31 U/L (14-36); Bilirubin,Total 0.6 mg/dL (0.2-1.3); Blood Urea Nitrogen 11 mg/dL (7-17); Calcium 9.6 mg/dL (8.4-10.2); Carbon Dioxide 26 mmol/L (22-30); Chloride 103 mmol/L (98-107); Cholesterol 194 mg/dL (0-200); Estimated Glomerular Filt Rate > 60; Glucose 171 mg/dL (65-110); HDL Direct 56 mg/dL; Potassium 4.2 mmol/L (3.4-5.0); Sodium 137 mmol/L (137-145); Triglycerides 174 mg/dL (<150)
[2024-03-24 09:28] LABS: LDL Cholesterol Direct 114 mg/dL
[2024-03-24 09:33] LABS: Hemoglobin A1C 6.6 % (<5.7)
== END 2024-03-24 08:24 | disposition home or self-care (01) ==
LOC: ANHLAB 08:25
PROVIDERS: PCP Family Medicine; Visit Provider Nurse Practitioner
DX: E78.5 Hyperlipidemia, unspecified (principal); E11.9 Type 2 diabetes mellitus without complications
CPT/HCPCS: 36415; 80053; 80061; 83036

== ENCOUNTER 2024-04-13 05:51 | Day surgery (SDC) | payer MEDICARE, SELFPAY ==
[2024-02-09 15:18] VITALS: BMI 30.6
[2024-03-31 10:41] VITALS: BMI 30.2
--- NOTE | 2024-04-12 12:14 | PM.HPGS ---
History of Present Illness History of Present Illness Consent: Risks, benefits, and alternatives have been discussed and questions answered. Patient agrees to proceed with procedure. Chief complaint: Personal HX of other malignant neoplasm of Narrative: Diamond Hutchinson is a 74 year old female referred for colon cancer screening. Five years ago she was found to have adenocarcinoma of the ascending colon which was resected. Her last colonoscopy was 3 years ago. Review of Systems Review of Systems: All systems reviewed & are unremarkable except as noted in HPI and below PMFSH Past Medical History Medical History Ascending colon malignant neoplasm Chronic anemia Diabetes Hiatal hernia identified by CT, small sliding distal esophageal High cholesterol History of blood transfusion History of colon cancer Hypertension Multiple renal calculi history of passing without surgical intervention Obesity (BMI 30-39.9) Postmenopausal Screening for breast cancer RELL (stress urinary incontinence, female) Vitamin D deficiency, unspecified Surgical History Surgical History History of cholecystectomy 2011 History of hysterectomy Status post right hemicolectomy Family History Family History Father Acute myocardial infarction, Onset Age: 63 Patient's father is Mother Family history of malignant neoplasm of breast in first degree relative, Onset Age: 63 Patient's mother is Sibling Family history of malignant neoplasm of breast in first degree relative Grandparent Diabetes mellitus Other Cerebrovascular accident Family history of cardiovascular disease Social History Social History Smoking status: Never smoker Second hand tobacco smoke exposure: No Alcohol intake: never Substance use: never Substance use type: does not use Lack of Transportation: No Lack of Food: Never True Current Housing: I Have Housing Concerned About Future Housing: No Difficulty Paying Gas/Electric Bills: No Difficulty Paying for Meds: No Currently Unemployed: No Education: Trade/Vocational Certificate Difficulty w/ Childcare or Family Care: No Living arrangements: alone Gender identity (if verbalized by the patient): Female Spiritual care concerns: No Meds Home Medications and Allergies Home Medications Medication Instructions Recorded Confirmed Type omega 1-wki-wev-fish oil 1,000 mg 1 cap PO TID 10/05/19 04/13/24 History (120 mg-180 mg) capsule (Fish Oil) vitamin B complex-folic acid 0.4 1 tablet PO BID 10/05/19 04/13/24 History mg tablet (B Complex 1 (with folic acid)) magnesium oxide 400 mg (241.3 mg See Rx Instructions .Route 05/30/23 04/13/24 Rx magnesium) tablet .COMPLEX #180 tabs ezetimibe 10 mg tablet See Rx Instructions .Route 12/30/23 04/13/24 Rx .COMPLEX #90 tabs losartan 100 See Rx Instructions .Route 01/26/24 04/13/24 Rx mg-hydrochlorothiazide 25 mg tablet .COMPLEX #90 tabs glipizide 5 mg tablet See Rx Instructions .Route 01/29/24 04/13/24 Rx .COMPLEX #270 tabs metformin 1,000 mg tablet 1,000 mg PO BID #180 tabs 03/04/24 04/13/24 Rx pioglitazone 45 mg tablet 45 mg PO DAILY #90 tabs 04/02/24 04/13/24 Rx Allergies Allergy/AdvReac Type Severity Reaction Status Date / Time No Known Allergies Allergy Verified 04/13/24 06:09 Exam Resp: Auscultation: clear to auscultation bilaterally Cardio: Rate: regular rate Rhythm: regular rhythm GI: GI Palp: Yes Soft to palpation and No Tenderness to palpation present (GI) Assessment and Plan Assessment and plan (1) History of colon cancer: Code(s): Z85.038 - Personal history of other malignant neoplasm of large intestine Status: Acute Assessment an
[2024-04-13 06:13] VITALS: BP 111/79; PULSE 71; RESP 14; TEMP 36.8; O2SAT 98
[2024-04-13 06:33] LABS: Glucose Point of Care 183 mg/dl (65-105)
--- NOTE | 2024-04-13 07:10 | SUR.PREOP ---
Dr. Kaye aware of Pt's pre-op blood sugar of 183. No further orders at this time.
--- NOTE | 2024-04-13 07:16 | WPDANESEPPF ---
Anes - Initial Pre Proc Eval Procedure: Operation Date: 04/13/24 07:30 Proposed Procedures p Diagnostic Colonoscopy - José Miguel Lynn MD Date/Time: 04/13/24 07:16 Surgeon: José Miguel Lynn MD Pre Op Diagnosis: Personal HX of other malignant neoplasm of Patient Data Age: 74 Gender: F Height: 1.57 m Weight: 82.95 kg Last Vital Signs Temp 36.8 C 04/13/24 06:13 Pulse 71 04/13/24 06:13 Resp 14 04/13/24 06:13 BP 111/79 04/13/24 06:13 Pulse Ox 98 04/13/24 06:13 O2 Del Method Room Air 04/13/24 06:13 Allergies Allergy/AdvReac Type Severity Reaction Status Date / Time No Known Allergies Allergy Verified 04/13/24 06:09 Home Medications Medication Instructions Recorded Confirmed Type omega 0-udk-onz-fish oil 1,000 mg 1 cap PO TID 10/05/19 04/13/24 History (120 mg-180 mg) capsule (Fish Oil) vitamin B complex-folic acid 0.4 1 tablet PO BID 10/05/19 04/13/24 History mg tablet (B Complex 1 (with folic acid)) magnesium oxide 400 mg (241.3 mg See Rx Instructions .Route 05/30/23 04/13/24 Rx magnesium) tablet .COMPLEX #180 tabs ezetimibe 10 mg tablet See Rx Instructions .Route 12/30/23 04/13/24 Rx .COMPLEX #90 tabs losartan 100 See Rx Instructions .Route 01/26/24 04/13/24 Rx mg-hydrochlorothiazide 25 mg tablet .COMPLEX #90 tabs glipizide 5 mg tablet See Rx Instructions .Route 01/29/24 04/13/24 Rx .COMPLEX #270 tabs metformin 1,000 mg tablet 1,000 mg PO BID #180 tabs 03/04/24 04/13/24 Rx pioglitazone 45 mg tablet 45 mg PO DAILY #90 tabs 04/02/24 04/13/24 Rx Laboratory Tests 04/13/24 06:22 POC Capillary Glucose 183 H mg/dl (65-105) Patient hx anesthesia problems: none Family hx anesthesia problems: none Results Review: All pre-operative results and documents have been reviewed as part of the pre-operative evaluation. [facility] Past Medical History Medical History Ascending colon malignant neoplasm Chronic anemia Diabetes Hiatal hernia identified by CT, small sliding distal esophageal High cholesterol History of blood transfusion History of colon cancer Hypertension Multiple renal calculi history of passing without surgical intervention Obesity (BMI 30-39.9) Postmenopausal Screening for breast cancer RELL (stress urinary incontinence, female) Vitamin D deficiency, unspecified Surgical History Surgical History History of cholecystectomy 2011 History of hysterectomy Status post right hemicolectomy Family History Family History Father Acute myocardial infarction, Onset Age: 63 Patient's father is Mother Family history of malignant neoplasm of breast in first degree relative, Onset Age: 63 Patient's mother is Sibling Family history of malignant neoplasm of breast in first degree relative Grandparent Diabetes mellitus Other Cerebrovascular accident Family history of cardiovascular disease Social History Social History Smoking status: Never smoker Second hand tobacco smoke exposure: No Alcohol intake: never Substance use: never Substance use type: does not use Lack of Transportation: No Lack of Food: Never True Current Housing: I Have Housing Concerned About Future Housing: No Difficulty Paying Gas/Electric Bills: No Difficulty Paying for Meds: No Currently Unemployed: No Education: Trade/Vocational Certificate Difficulty w/ Childcare or Family Care: No Living arrangements: alone Gender identity (if verbalized by the patient): Female Spiritual care concerns: No Anes - Eval Final PreProcedure Day of Procedure 04/13/24 07:16 Patient weight: obese Heart: regular rate and rhythm Lungs: clear to auscultation Airway: Mallampati scale
[2024-04-13] MEDS: LACTATED RINGERS 1,000 ML 150 ML IV CONT (07:23)
[2024-04-13 07:48] VITALS: BP 82/50; PULSE 96; RESP 15; O2SAT 96
[2024-04-13 07:58] VITALS: BP 97/59; PULSE 70; RESP 16; O2SAT 97
[2024-04-13 08:16] VITALS: BP 111/63; PULSE 66; RESP 15; O2SAT 99
--- NOTE | 2024-04-13 08:28 | WPDANESPN ---
Anes - Prog Note Post-Op Date/Time: 04/13/24 08:28 Cardiovascular status: normal Respiratory status: normal Airway patency: baseline Mental status: baseline Post-Op hydration status: normal Vital Signs: Last Vital Signs Temp 36.8 C 04/13/24 06:13 Pulse 66 04/13/24 08:16 Resp 15 04/13/24 08:16 BP 111/63 04/13/24 08:16 Pulse Ox 99 04/13/24 08:16 O2 Del Method Room Air 04/13/24 08:16 Pain Score (VAS): 0 I/O: Intake & Output 04/12/24 04/13/24 04/13/24 23:59 07:59 15:59 Intake Total 450 250 Balance 450 250 04/13/24 06:22 POC Capillary Glucose 183 H Patient Feedback: Patient satisfied with anesthetic care.
== END 2024-04-13 08:22 | disposition home or self-care (01) ==
PROVIDERS: PCP Family Medicine; Visit Provider Internal Medicine Gastroenterology
PROC: 0DJD8ZZ Inspection of Lower Intestinal Tract, Via Natural or Artificial Opening Endoscopic (ICD-10-PCS; CPT 45378; principal; 2024-04-13 07:30)
DX: Z85.038 Personal history of other malignant neoplasm of large intestine (principal); Z12.11 Encounter for screening for malignant neoplasm of colon; K57.30 Diverticulosis of large intestine without perforation or abscess without bleeding; K63.89 Other specified diseases of intestine
CPT/HCPCS: 45378

== ENCOUNTER 2024-09-29 06:46 | Outpatient (CLI) | payer MEDICARE, SELFPAY ==
[2024-09-29 07:33] LABS: Alanine Aminotransferase 17 U/L (6-35); Albumin Level 4.1 g/dL (3.5-5.1); Alkaline Phosphatase 57 U/L (38-126); Anion Gap 8 mmol/L (4-12); Aspartate Amino Transferase 23 U/L (14-36); Bilirubin,Total 0.4 mg/dL (0.2-1.3); Blood Urea Nitrogen 25 mg/dL (7-17); Calcium 9.4 mg/dL (8.4-10.2); Carbon Dioxide 28 mmol/L (22-30); Chloride 103 mmol/L (98-107); Cholesterol 182 mg/dL (0-200); Estimated Glomerular Filt Rate > 60; Glucose 132 mg/dL (65-110); HDL Direct 45 mg/dL; Potassium 3.9 mmol/L (3.4-5.0); Sodium 139 mmol/L (137-145); Triglycerides 172 mg/dL (<150)
[2024-09-29 07:39] LABS: Hemoglobin A1C 6.6 % (<5.7)
[2024-09-29 07:44] LABS: LDL Cholesterol Direct 89 mg/dL
[2024-09-29 08:01] LABS: Hematocrit 41.6 % (37.0-47.0); Hemoglobin 13.6 g/dL (12.0-15.0); Mean Corpuscular HGB Conc 32.7 g/dl (32-36); Mean Corpuscular Hemoglobin 29.8 pg (26-34); Mean Platelet Volume 10.6 fl (7.4-10.4); Platelet Count Result 345 k/mm3 (150-375); Red Blood Count 4.57 M/mm3 (4.2-5.4); Red Cell Distribution Width 15.2 % (11.5-14.5); White Blood Count 10.2 K/mm3 (4.5-10.0)
== END 2024-09-29 06:47 | disposition home or self-care (01) ==
PROVIDERS: PCP Nurse Practitioner; Visit Provider Nurse Practitioner
DX: E78.5 Hyperlipidemia, unspecified (principal); E11.9 Type 2 diabetes mellitus without complications
CPT/HCPCS: 36415; 80053; 80061; 83036; 85027

== ENCOUNTER 2025-04-07 06:38 | Outpatient (CLI) | payer MEDICARE, SELFPAY ==
--- OUTSIDE RECORDS SUMMARY | 2025-04-07 06:40 | XMS_ITS | Clinical Summary ---
Author Organization [facility] Address [address] [address] Care Team Providers Care Leadership Recruiter Name Role Phone Keyon Luna MD Primary Care Provider [phone] Allergies No known active allergies Medications GLIPIZIDE ORAL Take by mouth. Active cyanocobalamin, vitamin B-12, (VITAMIN B-12 ORAL) Take by mouth. Active aspirin (ECOTRIN EC) 81 mg Tablet, Delayed Release (E.C.) Take 81 mg by mouth daily. Active magnesium oxide (MAG-OX) 400 mg (241.3 mg magnesium) tablet TK 1 T PO D 11 07/20/2019 Active omega 4-kzf-end-fish oil (FISH OIL) 100-160-1,000 mg Capsule Fish Oil Active losartan-hydroCH LOROthiazide (HYZAAR) 100-25 mg tablet TK 1 T PO D 06/30/2020 Active Janumet 50-500 mg tablet TK 1 T PO BID 08/02/2020 Active amLODIPine (NORVASC) 5 mg tablet Take 5 mg by mouth daily. Active Active Problems Problem Noted Date Diagnosed Date Malignant neoplasm of ascending colon 09/13/2019 Iron deficiency anemia 09/13/2019 Type 2 diabetes mellitus wit hout complication, without long-term current use of insulin 09/13/2019 Family History Medical History Relation Name Comments Heart Disease Father Cancer Mother Cancer Sister Relation Name Status Comments Brother 1 Alive Brother 2 Alive Father Mother Sister Social History Tobacco Use Types Packs/Day Years Used Date Smoking Tobacco: Never Smokeless Tobacco: Never Tobacco Cessation:Counseling Given: Not Answered Alcohol Use Standard Drinks/Week Comments Never 0 (1 standard drink = 0.6 oz pur e alcohol) Comments No Sex and Gender Information Value Date Recorded Sex Assigned at Not on file Legal Sex Female 8:57 AM [employer] Gender Identity Not on file Sexual Orientation Not on file Last Filed Vital Signs Vital Sign Reading Time Taken Comments Blood Pressure 147/77 04/11/2023 10:43 AM CDT Pulse 74 04/11/2023 10:41 AM CDT Temperature 36.4 C (97.5 F) 04/11/2023 10:41 AM CDT Respiratory Rate 10 04/11/2023 10:41 AM CDT Oxygen Saturation 99% 04/11/2023 10:41 AM CDT Inhaled Oxygen Concentration - - Weight 75.8 kg (167 lb) 04/11/2023 10:41 AM CDT Height 157.5 cm (5' 2) 07/12/2022 10:33 AM CDT Body Mass Index 30.54 07/12/2022 10:33 AM CDT Plan of Treatment Health Maintenance Due Date Last Done Comments DIABETES ANNUAL FOOT EXAM 1970 DIABETES MICROALBUMIN ANNUAL SCREEN 1970 LDL CHOLESTEROL ANNUAL 1970 DTAP/TDAP/TD VACCINES (1 - Tdap) 1971 PNEUMOCOCCAL VACCINE 50+ YEA RS (1 of 2 - PCV) 1971 ZOSTER VACCINE (1 of 2) 2002 RSV VACCINE (60+ or ) (1 - Risk 60-74 years 1-dose series) 2012 DIABETES HBA1C Q 6 MONTHS 03/17/20232021, 02/08/2022, 08/02/2021, Additional history exists BREAST CANCER SCREENING 07/03/2023 07/03/20, 06/13/2022, 06/13/2022, Additional history exists DIABETES ANNUAL RETINAL EXAM 09/02/2023, 03/27/2022, 03/08/2022, Additional history exists OSTEOPOROSIS SCREENING 03/12/2024 03/12/2019 INFLUENZA VACCINE (#1) 2024 Insurance [facility] DUAL COMPLETE HMO DSNP [facility] [id number] Care Teams Leadership Recruiter Relationship Specialty Start Date End Date Keyon Luna MD PCP - General Family Practice 04/11/23
--- OUTSIDE RECORDS SUMMARY | 2025-04-07 06:40 | XMS_ITS | Data Portability ---
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 Discussed evaluation and treatment options including risks and benefits with patient, and patient expressed understanding. The following interventions were recommended: heart healthy low-fat, low-sodium diet, continue regular exercise, maintain appropriate weight, continue current medications, and medical follow-up as noted. [email or web address] Not available 02/11/2018 16:43:19 03/25/2018 03/25/2018 Discussed with patient findings, diagnosis, and prognosis. Discussed evaluation and treatment options including risks and benefits with patient, and patient expressed understanding. The following interventions were recommended: heart healthy low-fat, low-sodium diet, continue regular exercise, maintain appropriate weight, continue current medications, and medical follow-up as noted. [email or web address] Not available 03/25/2018 10:54:52 Plan of Treatment Reminders Order Date Submit Date Provider Last Modified By Organization Details Last Modified Time Details Appointments None recorded. Lab None recorded. Referral None recorded. Procedures None recorded. Surgeries None recorded. Imaging electrocar diogram 2017 018 LAISHA Not available 18:17:44 electrocar diogram 2017 018 LAISHA Not available 8 17:09:59 Medication Orders magnesium oxide 400 mg (241.3 mg magnesium) tablet 2017 018 INTERFACE [facility] [address] [place], [address], 8 12:06:47 Livalo 2 mg tablet 2017 018 INTERFACE [facility] [address] [place], [address], 8 17:05:51 Patient TargetsNo targets recorded. Patient Instructions Encounter Date Encounter Id Patient Instructions Last Modified By Organization Details Last Modified Time 02/11/2018 [id number] high blood pressure: care instructions [email or web address] Not available 02/11/2018 17:05:48 learning about high blood pressure [email or web address] Not available 02/11/2018 17:05:48 This document wa s scribed by Mony weldon Not available 02/11/2018 16:16:04 03/25/2018 [id number] high blood pressure: care instructions [email or web address] Not available 03/25/2018 12:06:43 learning about high blood pressure [email or web address] Not available 03/25/2018 12:06:44 Reason for Referral None Reported. Results Created Date Observation Date Name Description Value Unit Range Abnormal Flag Note LastModifiedBy Organization Detail LastModifiedTime 02/06/20 18 01/31/2018 , echoc ardio gram No observ ation record ed. Not Available 2017 13:05:39 02/11/20 18 01/31/2018 , echoc ardio gram No observ ation record ed. [email or web address] Not Available 2017 17:52:23 02/13/20 18 01/31/2018 elect juan diogr am No observ ation record ed. [email or web address] Not Available 2017 17:08:26 02/13/20 18 01/31/2018 , echoc ardio gram No observ ation record ed. [email or web address] Not Available 2017 05:25:54 02/13/20 18 02/11/2018 elect juan johnstongr am No observ ation record ed. [email or web address] Not Available 2017 11:54:03 Result Notes None recorded. Problems Name Problem SNOMED Code Status Onset Date Resolution Date Notes Provider Name and Address Organization Details Recorded Time Uncontrol led type 2 diabetes mellitus 898228801 Active 2017 Charles Gregory [facility], [place] [facility] 8 13:42:31 Essential hypertens ion 73481534 Active 2017 Charles Gregory [facility], [facility] 8 13:46:49 Hyperlipi scarlettia 14253769 Completed 201702/11/2018 Mony Moore [facility] 8 16:12:58 Body mass index 30+ - obesity 254220989 Active 2017 Charles Gregory [facility], [facility] 8 13:47:39 Exposure to tuberculo sis 859597391290 1 Active 2017 Ivory Branhamdanish [facility] 8 15:03:04 Coronary arteriosc lerosis 65747784 Active 2017 Mony Moore [facility] 8 16:11:58 Dyslipide danny 451558046 Active 2017 Mony Moore [facility] 8 16:12:54 Problem Notes None recorded. Medical Equipment None Reported. Allergies No known drug allergies Medications Name Sig Start Date Stop Date Status Note LastModified by Organization Details LastModified Time clopidogr el 75 mg tablet TAKE 1 TABLET BY MOUTH ONCE DAILY. 2017 active Not Available Not Available Not Avai lable magnesium oxide 400 mg (241.3 mg magnesium ) tablet TAKE 1 TABLET BY MOUTH ONCE DAILY. 2018 active Not Available Not Available Not Avai lable baclofen 10 mg tablet Take 1 tablet twice a day by oral route. 02/11 completed Not Available Not Available Not Available metformin 1,000 mg tablet Take 1 tablet twice a day by oral route. active Not Available Not Available No t Available aspirin 81 mg chewable tablet Chew 1 tablet every day by oral route. active Not Available Not Available No t Available hydrochlo rothiazid e 25 mg tablet Take 1 tablet every day by oral route. active pt says shes not taking this but seemed confused to me about the meds 03/25/18 nl Not Available Not Available Not Available losartan 100 mg tablet Take 1 tablet every day by oral route. active Not Available Not Available No t Available glipizide 5 mg tablet Take 1 tablet twice a day by oral route. active Not Available Not Available No t Available B-Complex tablet Take by oral route. active Not Available Not Available No t Available magnesium active Not Available Not Doris ilable Not Available Fish Oil active Not Available Not Avai lable Not Available iron active Not Available Not Availa ble Not Available Plavix 03/25 completed Not Available Not Available Not Available Livalo 2 mg tablet 1 tab po qd active Approved till 02/18/19 Not Available Not Available Not Available Vitals Date Recorded Body weight Body mass index (BMI) Body height Heart rate Oxygen saturation Oxygen saturation in Arterial blood by Pulse oximetry Systolic blood pressure Diastolic blood pressure Provider Name and Address Organization Details Last Updated DateTime 8 68467.3 3 g 30.4 kg/m2 157.48 cm 70 /min 98 % 98 % 130 mm[Hg] 76 mm[Hg] Ivory Hoover [facility] 8 15:16:03 Date Recorded Body height Body mass index (BMI) Body weight Heart rate Oxygen saturation Oxygen saturation in Arterial blood by Pulse oximetry Systolic blood pressure Diastolic blood pressure Provider Name and Address Organization Details Last Updated DateTime 8 157.48 cm 31.1 kg/m2 08917.7 g 84 /min 97 % 97 % 132 mm[Hg] 78 mm[Hg] Ivory Hoover [facility] 8 11:03:42 Social History Question Answer Notes LastModified by Organizat ion Details LastModified Time Tobacco Smoking Status Never Smoker Not Available [facility] 09/12/2020 03:30:42 What Is Your Level Of Caffeine Consumption? Occasional 4 Cups A Day [id number] Information not available 09/12/2020 How Much Tobacco Do You Chew? None [id number] Information not available 09/12/2020 What Type Of Diet Are You Following? DIABETIC [id number] Information not available 09/12/2020 Marital Status [email or web address] Information not available 02/11/2018 What Was The Date Of Your Most Recent Tobacco Screening? 02/11/2018 [id number] Information not available 09/12/2020 How Many Children Do You Have? 2 [id number] Information not available 09/12/2020 Sex: Unknown Functional Status Question Answer Note LastModified by Organization D etails LastModified Time What is your level of alcohol consumption? None [id number] Information not available 09/12/2020 What is your occupation? [employer] [id number] Information not available 09/12/2020 What is your exercise level? Moderate [id number] Information not available 09/12/2020 Mental Status None recorded. Family History Nothing Reported Notes:weak heart muscle - fa ther, with smoking. No premature LA. Medical History Condition Response Coronary Artery Disease Y Gynecological HistoryNo gynecological history recorded. Obstetrics History GPAL:G 0 P 0 0 0 0 Past Encounters Encounter ID Performer Location Encounter Start Date Encounter Closed Date Diagnosis/Indication Diagnosis SNOMED-CT Code Diagnosis ICD10 Code Diagnosis Note [id number] Vasiliy Day MD [place] OFF[facility] [address] [place] [id number] 02/11/2018 14:47:12 02/12/2018 10:40:46 Coronary arteriosclerosis 49026877 I25.10 s/p NSTEMI 01/2018. Had LHC showed mild-mod CAD. Normal LV systolic function. Needs to keep LDL less than 70, and HDL more than 40 Will get lipid profile results from PCP. Essential hypertension 47581101 I10 Patient's blood pressure is well-contr olled on present medical therapy. Patient is tolerating , without difficulty , the current medication s. I have not made changes to the current regimen. Patient is advised to maintain a blood pressure diary. Patient was advised to eat a low-sodium diet (2 grams sodium or less daily). Uncontroll ed type 2 diabetes mellitus 529490155 E11.65 Discussed importance of tight glycemic control to minimize cardiovasc ular disease progressio n. Dyslipidemia 920197854 E 78.5 Needs to keep LDL less than 70, and HDL more than 40 Intolerant of statins with muscle aches. Will start Livalo 2 mg qHS 02/11/18. If intolerant of Livalo, consider PCSK9 inhibitor. FLP/CMP/CP K/Mg 4 weeks. [id number] Vasiliy Day MD [facility] [address] [place] [address] 03/25/2018 10:51:28 03/26/2018 09:56:11 Coronary arteriosclerosis 70673364 I25.10 s/p NSTEMI 01/2018. Had LHC showed mild-mod CAD. Normal LV systolic function. Needs to keep LDL less than 70, and HDL more than 40 Continue ASA, clopidogre l. Essential hypertension 26471465 I10 Patient's blood pressure is well-contr olled on present medical therapy. Patient is tolerating , without difficulty , the current medication s. I have not made changes to the current regimen. Patient is advised to maintain a blood pressure diary. Patient was advised to eat a low-sodium diet (2 grams sodium or less daily). Had Mg 1.5 02/2018. Began MgOxide 400mg qd. Dyslipidemia 675740974 E 78.5 Needs to keep LDL less than 70, and HDL more than 40 Intolerant of statins with muscle aches. Started Livalo 2 mg qHS 02/11/18. Had LDL 68, CPK 89 (normal) 03/2018. If intolerant of Livalo, consider PCSK9 inhibitor. Uncontroll ed type 2 diabetes mellitus 506387825 E11.65 Discussed importance of tight glycemic control to minimize cardiovasc ular disease progressio n. Health Concerns Section Related Observation LastModified by Organization Detai ls LastModified Time None Recorded Concern Status LastModified by Organization Details LastModified Time None Recorded Advance Directives Directive None Recorded Payers Insurance Date Sequence Insurance Name Policy Number Policy Pinon Covered Member ID Pinon Member ID Guarantor Name 02/03/2018 2 [place] Diamond Hutchinson [id number] Diamond Ayalameneymar 06/19/2018 1 [employer] (PPO) [id number] Diamond Hutchinson [id number] Diamond Hutchinson Notes Date Note Type Note Provider Name and Address Organization Details Recorded Time 02/11/2018 text/html 02/11/18 CC: Chest pain 68 year old white woman with history of coronary artery disease (mild-mod.) s/p NSTEMI, hypertension, dyslipidemia, diabetes mellitus, iron deficiency anemia, who presents to our office as a hospital follow up from [place] after an episode of chest pain. She was at work at [employer] on 02/01/18 when she developed burning right chest pain, with relief with rest. She was diagnosed with anemia (Hgb 7.8) and NSTEMI with supply-demand mismatch. She had no ST changes on EKG, but 1st set of troponins were normal, 2nd set was slightly elevated and 3rd set was 0.37. She then had a cath by Dr. Purcell on 02/02/18 which showed left main medium size artery showed proximal 25% narrowing and distal 25% narrowing. LAD medium size artery showed eccentric lesion about 50%. Proximal portion and diffuse disease distally 25% narrowing. Left circumflex artery showed mid circ about 40-50% narrowing. RCA dominant vessel. No significant disease or stenosis. LV gram showed normal size LV, with normal systolic function. She was started on Plavix and ASA 81mg daily. She was discharged home on 02/07/18. She has been feeling well since being discharged. She has a history of dyslipidemia and reports intolerance of several statin medications. She is active with work, goes to the [facility] 3-4 times a week to walk. History of coronary artery disease. No history of previous myocardial infarction. No history of heart failure. No known history of valvular heart disease. No known arrhythmia. Chest pain resolved. No shortness of breath at rest. No dyspnea on exertion. No palpitations. No orthopnea. No PND's. No lightheadedness or dizziness. No syncope or near syncope. Slight leg swelling throughout the day, resolved with elevation. No nausea and vomiting. No major bleeding events. No side effects from medications. Had ECHO 01/31/18: LV normal wall thickness. Normal global left ventricular systolic function. Impaired diastolic function, Grade 1. There is mild enlargement of left atrium. Right atrium is normal in size. Estimated peak RVSP is 38mmHg. Mild tricuspid regurgitation. Results from this visit, or from the past: ECHO 01/31/18: LV normal wall thickness. Normal globe left ventricular systolic function. Impaired diastolic function, Grade 1. Ther is mild enlargement of left atrium. Right atrium is normal in size. Estimated peak RVSP is 38mmHg. Mild tricuspid regurgitation. LHC on 02/02/18 which showed left main medium size artery showed proximal 25% narrowing and distal 25% narrowing. LAD medium size artery showed eccentric lesion about 50%. Proximal portion and diffuse disease distally 25% narrowing. Left circumflex artery showed mid circ about 40-50% narrowing. RCA dominant vessel. No significant disease or stenosis. LV gram showed. Normal size LV, with normal systolic function. Vasiliy gray, [place] - [facility] 02/11/2018 17:07:09 03/25/2018 text/html 03/25/18 CC: Chest pain 68 year old white woman with history of coronary artery disease (mild-mod.) s/p NSTEMI, hypertension, dyslipidemia, diabetes mellitus, iron deficiency anemia, who presents to our office for follow up for chest pain. She was at work at [employer] on 02/01/18 when she developed burning right chest pain, with relief with rest. She was diagnosed with anemia (Hgb 7.8) and NSTEMI with supply-demand mismatch. She had no ST changes on EKG, but 1st set of troponins were normal, 2nd set was slightly elevated and 3rd set was 0.37. She then had a cath by Dr. Purcell on 02/02/18 which showed left main medium size artery showed proximal 25% narrowing and distal 25% narrowing. LAD medium size artery showed eccentric lesion about 50%. Proximal portion and diffuse disease distally 25% narrowing. Left circumflex artery showed mid circ about 40-50% narrowing. RCA dominant vessel. No significant disease or stenosis. LV gram showed normal size LV, with normal systolic function. She was started on Plavix and ASA 81mg daily. She was discharged home on 02/07/18. She has been feeling well since being discharged. She has a history of dyslipidemia and reports intolerance of several statin medications. She is active with work, goes to the [facility] 3-4 times a week to walk. History of coronary artery disease. No history of previous myocardial infarction. No history of heart failure. No known history of valvular heart disease. No known arrhythmia. Chest pain resolved. No shortness of breath at rest. No dyspnea on exertion. No palpitations. No orthopnea. No PND's. No lightheadedness or dizziness. No syncope or near syncope. Slight leg swelling throughout the day, resolved with elevation. No nausea and vomiting. No major bleeding events. No side effects from medications. Had ECHO 01/31/18: LV normal wall thickness. Normal global left ventricular systolic function. Impaired diastolic function, Grade 1. There is mild enlargement of left atrium. Right atrium is normal in size. Estimated peak RVSP is 38mmHg. Mild tricuspid regurgitation. Had Cath on 02/02/18 which showed left main medium size artery showed proximal 25% narrowing and distal 25% narrowing. LAD medium size artery showed eccentric lesion about 50%. Proximal portion and diffuse disease distally 25% narrowing. Left circumflex artery showed mid circ about 40-50% narrowing. RCA dominant vessel. No significant disease or stenosis. LV gram showed normal size LV, with normal systolic function. Results from this visit, or from the past: 03/12/18: Na 143 ,K 4.3 , CL 107 ,CO2 25 ,GLU 151 ,BUN 14 ,CR 0.80 , CK 89 ,TC 145 ,TG 83 ,HDL 46 ,LDL 68 ,AST 19 ,ALT 24 03/12/18: Na 143 ,K 4.3 ,CL 107 ,CO2 25 , GLU 151 , BUN 14 ,CR 0.80, CK 89,TC 145 ,TG 83 ,HDL 46,LDL ,AST 19 ,ALT 24, EKG 02/11/18 : Sinus rhythm P normal QRS extensive anterior infarct QS in V3 Q > 40 ms in V4 Q/R > 1/3 in V4 0.15 mV in V5 V6 low voltage in precordial leads ST-T normal conclusion abnormla ECG ECHO 01/31/18: LV normal wall thickness. Normal globe left ventricular systolic function. Impaired diastolic function, Grade 1. Ther is mild enlargement of left atrium. Right atrium is normal in size. Estimated peak RVSP is 38mmHg. Mild tricuspid regurgitation. LHC on 02/02/18 which showed left main medium size artery showed proximal 25% narrowing and distal 25% narrowing. LAD medium size artery showed eccentric lesion about 50%. Proximal portion and diffuse disease distally 25% narrowing. Left circumflex artery showed mid circ about 40-50% narrowing. RCA dominant vessel. No significant disease or stenosis. LV gram showed. Normal size LV, with normal systolic function. Vasiliy gray [place] [facility] 03/25/2018 12:07:05 OBGyn Episode No OBEpisode recorded.
[2025-04-07 08:01] LABS: Alanine Aminotransferase 18 U/L (6-35); Albumin Level 4.2 g/dL (3.5-5.1); Alkaline Phosphatase 62 U/L (38-126); Anion Gap 10 mmol/L (4-12); Aspartate Amino Transferase 28 U/L (14-36); Bilirubin,Total 0.5 mg/dL (0.2-1.3); Blood Urea Nitrogen 15 mg/dL (7-17); Calcium 9.8 mg/dL (8.4-10.2); Carbon Dioxide 24 mmol/L (22-30); Chloride 105 mmol/L (98-107); Cholesterol 195 mg/dL (0-200); Estimated Glomerular Filt Rate 59; Glucose 135 mg/dL (65-110); HDL Direct 55 mg/dL; Potassium 3.9 mmol/L (3.4-5.0); Sodium 139 mmol/L (137-145); Triglycerides 192 mg/dL (<150)
[2025-04-07 08:11] LABS: LDL Cholesterol Direct 87 mg/dL
[2025-04-07 11:52] LABS: Hemoglobin A1C 6.5 % (<5.7)
== END 2025-04-07 06:39 | disposition home or self-care (01) ==
LOC: ANHLAB 06:39
PROVIDERS: PCP Internal Medicine; Visit Provider Nurse Practitioner
DX: E78.5 Hyperlipidemia, unspecified (principal); E11.9 Type 2 diabetes mellitus without complications
CPT/HCPCS: 36415; 80053; 80061; 83036

== ENCOUNTER 2025-10-03 06:41 | Outpatient (CLI) | payer MEDICARE, SELFPAY ==
[2025-10-03 08:37] LABS: Hematocrit 40.1 % (37.0-47.0); Hemoglobin 13.0 g/dL (12.0-15.0); Immature Granulocyte Percent A 0.6 % (0-0.5); Lymphocytes Absolute Auto 3.32 K/mm3 (0.9-3.2); Mean Corpuscular HGB Conc 32.4 g/dl (32-36); Mean Corpuscular Hemoglobin 30.2 pg (26-34); Mean Corpuscular Volume 93.0 fl (80-100); Nucleated Red Blood Cells Absolute Auto 0.000 K/mm3 (0.0-0.012); Nucleated Red Blood Cells Perc 0.0 % (0.0-0.2); Platelet Count Result 316 k/mm3 (150-375); Red Blood Count 4.31 M/mm3 (4.2-5.4); White Blood Count 10.8 K/mm3 (4.5-10.0)
[2025-10-03 08:59] LABS: Alanine Aminotransferase 17 U/L (6-35); Albumin Level 4.0 g/dL (3.5-5.1); Alkaline Phosphatase 64 U/L (38-126); Anion Gap 9 mmol/L (4-12); Aspartate Amino Transferase 29 U/L (14-36); Bilirubin,Total 0.4 mg/dL (0.2-1.3); Blood Urea Nitrogen 15 mg/dL (7-17); Calcium 9.3 mg/dL (8.4-10.2); Carbon Dioxide 24 mmol/L (22-30); Chloride 103 mmol/L (98-107); Cholesterol 193 mg/dL (0-200); Estimated Glomerular Filt Rate 49; Glucose 100 mg/dL (65-110); HDL Direct 44 mg/dL; Potassium 3.9 mmol/L (3.4-5.0); Sodium 136 mmol/L (137-145); Total Protein 7.3 g/dL (6.3-8.2); Triglycerides 162 mg/dL (<150)
[2025-10-03 09:17] LABS: MALB Creatinine Ratio 7.6 mg/g (0-30)
[2025-10-03 10:44] LABS: Hemoglobin A1C 6.4 % (<5.7)
== END 2025-10-03 06:42 | disposition home or self-care (01) ==
LOC: ANHLAB 06:41
PROVIDERS: PCP Internal Medicine; Visit Provider Internal Medicine
DX: E78.5 Hyperlipidemia, unspecified (principal); I10 Essential (primary) hypertension; E11.9 Type 2 diabetes mellitus without complications; E55.9 Vitamin D deficiency, unspecified
CPT/HCPCS: 36415; 80053; 80061; 82043; 82306; 83036; 85025